=== PATIENT | female | born 1985 ===

== ENCOUNTER 2021-11-20 05:59 | Inpatient (IN) | payer SELFPAY ==
[2021-11-15 11:41] LABS: Hematocrit 37.1 % (30.3-42.9); Hemoglobin 12.6 gm/dl (10.1-14.3); Mean Corpuscular HGB Conc 34 % (30-34); Mean Corpuscular Volume 92 fl (79-97); Platelet Count 209 K/mm3 (140-440); Red Blood Count 4.03 M/mm3 (3.65-5.03)
[2021-11-20] MEDS ORDERED: GENTAMICIN 80 MG in SODIUM CHLORIDE 0.9% 100 ML IV ONE (10:16)
--- NOTE | 2021-11-20 10:25 | Anesthesia Consultation ---
Anesthesia Consult and Med Hx Date of service: 11/20/21 - Airway Anesthetic Teeth Evaluation: Good ROM Head & Neck: Adequate Mental/Hyoid Distance: Adequate Mallampati Class: Class II Intubation Access Assessment: Probably Good - Pulmonary Exam CTA: Yes - Cardiac Exam Cardiac Exam: RRR - Pre-Operative Health Status ASA Pre-Surgery Classification: ASA2 Proposed Anesthetic Plan: Epidural - Pulmonary Hx Smoking: No Hx Asthma: No COPD: No Hx Pneumonia: No - Cardiovascular System Hx Hypertension: No - Central Nervous System Hx Neuromuscular Disorder: No Hx Seizures: No Hx Psychiatric Problems: No - Endocrine Hx Renal Disease: No Hx End Stage Renal Disease: No Hx Hypothyroidism: No Hx Hyperthyroidism: No - Hematic Hx Anemia: No Hx Sickle Cell Disease: No - Other Systems Hx Alcohol Use: No Hx Cancer: No Hx Obesity: Yes
--- NOTE | 2021-11-20 10:25 | Anesthesia Day of Surgery ---
Anesthesia Day of Surgery - Day of Surgery Patient Examined: Yes Patient H&P Reviewed: Yes Patient is NPO: Yes
--- NOTE | 2021-11-20 10:32 | History and Physical Report ---
History of Present Illness Date of examination: 11/20/21 Date of admission: 11/20/21 09:15 Chief complaint: scheduled repeat c/sect and sterilization History of present illness: at 39.5wks by LMP c/w U/S. care at [facility]. Pt here for scheduled repeat section. Pt admits to movement, denies LOF, Vag bleed or feeling ctx. Pt desires no future fertility. labs in chart. Past History Past Medical History: no pertinent history Past Surgical History: section (x3) Social history: no significant social history - Obstetrical History Expected Date of Delivery: 11/22/21 Actual Gestation: 39 Week(s) 5 Day(s) : 3 Hx # Term Pregnancies: 3 (all 3 c/s) Induced : 1 Number of Living Children: 3 Medications and Allergies Allergies Allergy/AdvReac Type Severity Reaction Status Date / Time Penicillins Allergy Rash Verified 11/14/21 15:22 Home Medications Medication Instructions Recorded Confirmed Last Taken Type Vit No.130/Iron/Folic 1 each PO DAILY 09/25/15 11/14/21 09/24/15 16:00 History [ Tablet] Ibuprofen [Motrin] 800 mg PO Q8HR PRN 21 Days #40 11/20/21 Unknown Rx tablet oxyCODONE /ACETAMINOPHEN [Percocet 1 tab PO Q4HR PRN 21 Days #30 tab 11/20/21 Unknown Rx 5/325] Active Meds: Active Medications Citric Acid/Sodium Citrate (Bicitra Oral Liqd 30ml) 30 ml PO ONCE ONE Stop: 11/20/21 10:17 Famotidine (Famotidine 20 Mg/2 Ml Inj) 20 mg IV ONCE ONE Stop: 11/20/21 10:17 Ferrous Sulfate (Ferrous Sulfate 325 Mg Tab) 325 mg PO QDAY KYARA Lactated Ringer's (Lactated Ringers) 1,000 mls @ 2,250 mls/hr IV PREOP KYARA Stop: 11/21/21 10:57 Oxytocin/Sodium Chloride (Pitocin/Ns 30 Unit/500ml) 30 units in 500 mls @ 0 mls/hr IV TITR KYARA; Protocol Clindamycin HCl (Cleocin 900 Mg/50 Ml) 900 mg in 50 mls @ 100 mls/hr IV PREOP NR; Protocol Gentamicin Sulfate 80 mg/ (Sodium Chloride) 102 mls @ 200 mls/hr IV PREOP ONE; Protocol Stop: 11/20/21 10:45 Oxytocin/Sodium Chloride (Pitocin/Ns 30 Unit/500ml) 30 units in 500 mls @ 40 mls/hr IV TITR KYARA; Protocol Ibuprofen (Ibuprofen 600 Mg Tab) 600 mg PO Q6H PRN PRN Reason: Pain, Mild (1-3) Metoclopramide HCl (Metoclopramide 10 Mg/2 Ml Inj) 10 mg IV ONCE ONE Stop: 11/20/21 10:17 Morphine Sulfate (Morphine 4 Mg/1 Ml Inj) 4 mg IV Q4H PRN PRN Reason: Pain , Severe (7-10) Multi-Ingredient Ointment (Lanolin/Zinc/Dimethicone (Lansinoh) 7 Gm) 1 applic TP PRN PRN PRN Reason: dryness/cracking Naloxone HCl (Naloxone 0.4 Mg/1 Ml Inj) 0.1 mg IV Q2MIN PRN PRN Reason: Res Rate </= 8 or 02 SAT < 92% Oxycodone/Acetaminophen (Oxycodone /Acetaminophen 5-325mg Tab) 1 tab PO Q6H PRN PRN Reason: Pain, Moderate (4-6) Sodium Chloride (Sodium Chloride 0.9% 10 Ml Flush Syringe) 10 ml IV PRN NR Witch Autumn/Glycerin (Witch Autumn/ Glycerin Pad) 1 each TP PRN PRN PRN Reason: Hemorrhoids/cleansing/soothing Review of Systems All systems: negative (no complaints) - Vital Signs Vital signs: Vital Signs Temp Pulse Resp BP Pulse Ox 98.1 F 96 H 20 116/68 98 11/15/21 11:30 11/15/21 11:30 11/15/21 11:30 11/15/21 11:30 11/15/21 11:30 Temp Pulse Resp BP Pulse Ox 98.1 F 100 H 20 119/67 98 11/15/21 11:30 11/20/21 10:29 11/15/21 11:30 11/20/21 10:09 11/20/21 10:29 - Physical Exam Breasts: Positive: deferred Cardiovascular: Regular rate Lungs: Positive: Normal air movement Abdomen: Positive: soft, distention Genitourinary (Female): Positive: normal external genitalia Vulva: both: normal Uterus: Positive: enlarged (non-tender, gravid) - Obstetrical FHR: category 1 Uterine Contraction Monitor Mode: External Cervical Dilatation: 0 Uterine Contraction Pattern: Absent Results Result Diagrams: 11/20/21 10:35 All other labs normal. Assessment and Plan Term preg here for repeat c/section and bilateral salpingectomy with valid tubal papers. 1. Admit for procedure above, anesthesia and NICU notified. All questions encouraged and answered
[2021-11-20] MEDS ORDERED: ONDANSETRON 4 MG/2 ML INJ ONE ×2 (10:37→12:47)
[2021-11-20 10:38] LABS: Basophils # (Auto) 0.1 K/mm3 (0.0-0.1); Basophils % (Auto) 0.8 % (0.0-1.8); Eosinophils # (Auto) 0.1 K/mm3 (0.0-0.4); Eosinophils % (Auto) 1.2 % (0.0-4.3); Hematocrit 38.5 % (30.3-42.9); Hemoglobin 13.2 gm/dl (10.1-14.3); Lymphocytes # (Auto) 2.1 K/mm3 (1.2-5.4); Lymphocytes % (Auto) 29.6 % (13.4-35.0); Mean Corpuscular HGB Conc 34 % (30-34); Mean Corpuscular Volume 91 fl (79-97); Monocytes # (Auto) 0.4 K/mm3 (0.0-0.8); Monocytes % (Auto) 5.5 % (0.0-7.3); Platelet Count 191 K/mm3 (140-440); Red Blood Count 4.22 M/mm3 (3.65-5.03); Red Cell Distribution Width 14.7 % (13.2-15.2)
[2021-11-20] MEDS ORDERED: IBUPROFEN 600 MG TAB PO PRN (11:00)
[2021-11-20] MEDS ORDERED: LANOLIN/ZINC/DIMETHICONE (LANSINOH) 7 GM TP PRN (11:00)
[2021-11-20] MEDS ORDERED: GENTAMICIN/NS 100 MG/100 ML 100 MG/100 ML BAG IV SCH (11:00)
[2021-11-20] MEDS ORDERED: METOCLOPRAMIDE 10 MG/2 ML INJ IV SCH (11:00)
[2021-11-20] MEDS ORDERED: NALOXONE 0.4 MG/1 ML INJ IV PRN (11:00)
[2021-11-20] MEDS ORDERED: OXYTOCIN DRIP 30 UNITS/500 ML BAG IV SCH ×2 (11:00)
[2021-11-20] MEDS ORDERED: FAMOTIDINE 20 MG/2 ML INJ IV SCH (11:00)
[2021-11-20] MEDS ORDERED: BICITRA ORAL LIQD 30ML PO SCH (11:00)
[2021-11-20] MEDS: LACTATED RINGERS 1,000 ML IV SCH ×2 (11:58→20:12)
[2021-11-20] MEDS ORDERED: GENTAMICIN 40 MG/ML VIAL 2 ML IV ONE (12:10)
[2021-11-20] MEDS ORDERED: SODIUM CHLORIDE 0.9% IRR 1,500 ML BOTTLE IR ONE (12:30)
[2021-11-20] MEDS ORDERED: WATER FOR IRRIG STERILE 1,500 ML BOTTLE IR ONE (12:30)
[2021-11-20] MEDS ORDERED: LACTATED RINGERS 1,000 ML ONE ×4 (12:39→14:33)
[2021-11-20] MEDS ORDERED: PHENYLEPHRINE/NS 1,000 MCG/10 ML SYRINGE (OR USE) IV ONE (12:50)
[2021-11-20] MEDS ORDERED: WITCH HAZEL/ GLYCERIN PAD TP PRN (13:00)
[2021-11-20] MEDS ORDERED: BUPIVACAINE /DEX-WATER 0.75% (2 ML) AMPULE INFILTRATI ONE (13:04)
[2021-11-20] MEDS ORDERED: METHYLERGONOVINE MALEATE 0.2 MG/ML VIAL IM ONE ×2 (13:22→19:00)
[2021-11-20] MEDS ORDERED: miSOPROStol 200 MCG TAB ONE (13:22)
[2021-11-20] MEDS ORDERED: dexAMETHasone 20 MG/5 ML VIAL ONE (14:30)
[2021-11-20] MEDS ORDERED: BUPIVACAINE/PF (0.25%) 2.5 MG/ML 30 ML VIAL INFILTRATI ONE (14:30)
--- NOTE | 2021-11-20 15:02 | Procedure Note ---
OB Delivery Note - Delivery Date of Delivery: 11/20/21 Surgeon: KRISTYN TELLEZ Estimated blood loss: other (1350cc per QBL by nurse) - Section Preop diagnosis: repeat (previous c/s x3), desires sterilization section procedure: repeat low transverse, bilateral tubal ligation (via salpingectomy) Disposition: floor Complications: none Narrative: Date: 11/20/21 Surgeon: Kristyn Tellez MD Preop Dx: IUP at 39.5wks, previous c/s x3; desires permanent sterilization Postop Dx: same and latent labor and acute endomyometritis Procedure : Repeat low transverse section and bilateral tubal sterilization via salpingectomy Anesthesia: Spina Intake: 3500cc Output: 700cc clear urine at the end of the procedure EBL: 1350cc per QBL by nurse After the risks, benefits and alternatives of procedure discussed, patient signed consents and was taken to the operating room. Pt was given spinal anesthesia. After same was adequate, patient was prepped and draped in the usual sterile fashion. Man catheter in place and draining clear urine. Pt was given prophylactic antibiotic per protocol and time out was done Pfannenstiel skin incision was made and taken sharply to the fascia and the incision extended using electrocautery. Superior edge of the fascia was grasped with meryl clamps and the rectus muscle using blunt dissection and also using electrocautery. Lower portion of the fascia also using electrocautery. Rectus muscle in the midline and Peritoneal cavity entered sharply thru scar tissue and same extended with good visualization of the bladder. Nigel retractor placed without difficulty. The bladder flap was created sharply using metzenbaum scissors. Lower uterine segment was extremely thin and same entered transversely and amniotic sac entered using allys clamps and meconium stained fluid noted. Uterine incision extended using bandage scissors. delivered, bulb suctioned, cord clamped and baby handed to waiting pediatricians. Placenta then delivered completely and uterine cavity cleared of all clots and debri. Of note the tissue very friable and stained with meconium and portions in fragments as it was removed. The uterus was not exteriorized and closed in 2 layers using 0- monocryl suture in a running locked fashion and then an additional layer of imbrication suture. Excellent hemostasis noted. The gutters were cleared of clots and debri. Attention turned to left fallopian which was identified and follow out to it's fimbriated end. The avascular portion of the mesosalpinx was entered and the distal tubal segment with fimbriae excised and free ends remaining doubly ligated with 0-vicryl suture. Excellent hemostasis. In a similar manner the right tube was identified and distal tubal segment excised and free ends doubly ligated with excellent hemostasis. Of note the right tube had cyst of morgani. The anterior peritoneum and scar tissue and rectus muscle, reapproximated with 0-vicryl continuously and thene the rectus fascia closed with 0-vicryl suture in a continuous fashion. The subcutaneous tissue copiously irrigated with normal saline and re-approximated using 3-0 vicryl suture. Excellent hemostasis remains. The skin was closed with 4-0 monocryl suture in a subcutaneous fashion and steristrips placed. The right side of incision dermabond placed near suture knot only. Pressure dressing then placed above the steristrips. Sponge, lap, instrument and needle counts x4 were normal. Patient tolerated the procedure well and was taken to recovery room stable. Findings: Viable female infant, APGARS 8/9 and weight 3820g. Normal uterus with laboring lower uterine segment, meconium stained fluid, fragmented lower uterine segment tissue that breaks into fragments easily and meconium stained. Right tube with cyst of morgagni and left tube wnl and ovaries wnl bilaterally. Pathology: Right and left distal tubal segments. Right tube with cyst of morgagni and placenta with areas of calcification, infarct and meconium staining - A at 1 minute: 8 at 5 minutes: 9 Gender: Female (wt 3820g; meconium stained fluid)
--- NOTE | 2021-11-20 15:11 | Progress Note ---
Spinal Anesthesia Block - Spinal Anesthesia Block Start Time: 12:17 Stop Time: 12:26 Performed by:: ROOSEVELT POON Procedure: Patient is requesting epidural for labor pain. H&P and labs reviewed. Procedure explained, questions answered, consent obtained. Patient placed in sitting position with monitors applied. Timeout performed immediately before start of procedure. Prep/drape in usual sterile fashion. Skin localized 3 mL 1% lidocaine at L[2]-L[3] interspace. 17-gauge Tuohy epidural needle advanced to LIZ with saline at [8] cm. No blood/CSF noted via epidural needle. 25g spinal needle advanced into intrathecal space until clear, free flowing CSF noted. 1.4mL 0.75% hyperbaric bupivacaine + Precedex 0.5mcg injected into intrathecal space. Spinal needle removed and epidural catheter advanced to [12] cm. Negative aspiration for blood and CSF via catheter. Sterile dressing applied followed by tape reinforcement. Patient tolerated procedure well. No immediate complications noted.
--- NOTE | 2021-11-20 16:11 | Progress Note ---
Regional Anesthesia Block - Regional Anesthesia Block Start Time: 15:53 Stop Time: 15:58 Performed By:: ROOSEVELT POON Procedure: Patient consented for TAP block for post surgical pain management. Patient identified, monitors placed, and time out performed. TAP identified bilaterally via ultrasound. Skin prepped bilaterally with [chlorhexidine] and [22g stimuplex] needle advanced to the TAP. [Marcaine 0.25% 30ml] injected under ultrasound guidance on the [left] side. [Marcaine 0.25% 30ml] injected under ultrasound guidance on the [right] side. Negative aspiration every 5mL, No change in heart rate or rhythm. Patient tolerated the procedure well. No apparent complications seen.
[2021-11-20] MEDS: MORPHINE 4 MG/1 ML INJ IV PRN (18:43)
[2021-11-20] MEDS ORDERED: miSOPROStol 200 MCG TAB PR ONE (19:00)
[2021-11-20] MEDS: GENTAMICIN/NS 80 MG/100 ML 100 ML IV SCH (21:24)
[2021-11-21] MEDS: MORPHINE 4 MG/1 ML INJ IV PRN (01:10)
[2021-11-21] MEDS: GENTAMICIN/NS 80 MG/100 ML 100 ML IV SCH ×2 (04:38→13:32)
[2021-11-21] MEDS: FERROUS SULFATE 325 MG TAB PO SCH (10:25)
[2021-11-21] MEDS: oxyCODONE /ACETAMINOPHEN 5-325MG TAB PO PRN ×2 (10:25→12:59)
--- NOTE | 2021-11-21 11:16 | Post Anesthesia Evaluation ---
- Post Anesthesia Evaluation Patient Participated: Yes Airway Patent: Yes Stable Respiratory Function: Yes Nausea/Vomiting: No Temp > 96.8F: Yes Pain Manageable: Yes Adequeate Hydration: Yes Anesthesia Complications: No Block Receding Appropriately: Yes Patient on Ventilator: No
[2021-11-21] MEDS ORDERED: oxyCODONE /ACETAMINOPHEN 5-325MG TAB PO PRN (13:00)
--- NOTE | 2021-11-21 13:11 | Progress Note ---
Assessment and Plan A S/P Csection POD#1 Hypotensive Poor pain control. P Hypotensive, All other vitals wnl Stat CBC Pt. appears stable Increase percocet dosage to 10mg Continue PO care Subjective - Subjective Date of service: 11/21/21 Principal diagnosis: S/p Csection Patient reports: dizzy ambulation, pain poorly controlled, other (Called by RN , pt is hypotensive. All other vitals wnl. Pt. with incisional pain and right lower abdominal pain) Objective - Vital Signs Latest vital signs: Vital Signs Temp Pulse Resp BP BP Pulse Ox Pulse Ox 11/21/21 12:05 98.6 F 95 H 16 94/50 97 11/21/21 08:30 93 11/21/21 07:43 98.4 F 77 16 104/63 93 11/21/21 05:47 99.5 F 84 20 108/62 96 11/21/21 01:10 18 11/21/21 01:05 98.8 F 78 20 112/63 97 11/20/21 22:14 98 11/20/21 20:10 98.8 F 75 20 119/71 97 11/20/21 16:45 99.5 F 86 20 115/56 97 97 11/20/21 15:58 98.1 F 70 26 H 106/53 99 11/20/21 15:45 73 18 107/48 98 11/20/21 15:30 74 15 104/56 98 11/20/21 15:15 68 18 101/46 98 11/20/21 15:00 98.6 F 78 16 106/43 98 11/20/21 14:54 81 15 120/52 98 Intake and Output 11/20/21 11/21/21 11/21/21 23:59 07:59 15:59 Intake Total 340 240 220 Output Total 2800 300 900 Balance -9698 -60 -179 Intake: IV 100 Gentamicin/Ns 80 mg/100 100 ml 100 ml @ 200 mls/hr IV Q8H [facility] Rx#:[id number] Oral 120 120 220 Intake, Free Water 120 120 Output: Urine 2800 300 900 Indwelling Catheter 2800 Void 300 900 Other: Total, Intake Amount 120 120 220 Total, Output Amount 600 300 700 # Voids Void 1 - Exam Abdomen: Present: normal appearance, soft, normal bowel sounds Uterus: Present: firm, fundal height at umbilicus Extremities: Present: normal Incision: Present: dressed (Dressing clean and dry)
[2021-11-21 13:51] LABS: Basophils # (Auto) 0.1 K/mm3 (0.0-0.1); Basophils % (Auto) 0.5 % (0.0-1.8); Eosinophils % (Auto) 0.1 % (0.0-4.3); Hematocrit 35.6 % (30.3-42.9); Hemoglobin 11.8 gm/dl (10.1-14.3); Lymphocytes # (Auto) 2.1 K/mm3 (1.2-5.4); Mean Corpuscular HGB Conc 33 % (30-34); Mean Corpuscular Volume 93 fl (79-97); Monocytes # (Auto) 0.8 K/mm3 (0.0-0.8); Monocytes % (Auto) 6.2 % (0.0-7.3); Platelet Count 200 K/mm3 (140-440); Red Blood Count 3.84 M/mm3 (3.65-5.03); Red Cell Distribution Width 14.9 % (13.2-15.2)
[2021-11-22] MEDS: FERROUS SULFATE 325 MG TAB PO SCH (10:30)
--- NOTE | 2021-11-22 11:24 | Progress Note ---
Assessment and Plan A: POD #2 Stable P: Follow Routine PostOp Orders D/C home today per patient request RTO in one Week Subjective - Subjective Date of service: 11/22/21 Principal diagnosis: S/p Csection Patient reports: appetite normal, voiding normally, pain well controlled, flatus, ambulating normally : doing well, bottle feeding (and ) Objective - Vital Signs Latest vital signs: Vital Signs Temp Pulse Resp BP BP Pulse Ox Pulse Ox 11/22/21 08:54 96 11/22/21 08:12 98.8 F 87 18 108/73 96 11/22/21 00:00 98.6 F 74 16 104/78 11/21/21 20:00 100 11/21/21 16:12 98.3 F 79 20 104/64 96 11/21/21 14:00 81 103/59 97 11/21/21 12:05 98.6 F 95 H 16 94/50 97 Intake and Output 11/21/21 11/22/21 11/22/21 22:59 06:59 14:59 Intake Total 440 120 Output Total 900 Balance -460 120 Intake: Oral 440 120 Output: Urine 900 Void 900 Other: Total, Intake Amount 200 120 Total, Output Amount 900 # Voids Void 1 1 - Exam Breasts: Present: normal Cardiovascular: Present: Regular rate Lungs: Present: Clear to auscultation, Normal air movement Abdomen: Present: normal appearance, soft, normal bowel sounds Uterus: Present: normal, firm, fundal height below umbilicus Extremities: Present: normal Incision: Present: normal, dry, intact - Labs Labs: Abnormal lab results 11/21/21 Range/Units 13:39 WBC 12.2 H (4.5-11.0) K/mm3 Seg Neutrophils % 76.2 H (40.0-70.0) % Seg Neutrophils # 9.3 H (1.8-7.7) K/mm3
--- NOTE | 2021-11-22 11:26 | Discharge Summary ---
Providers - Providers Date of Admission: 11/20/21 09:15 Date of discharge: 11/22/21 Attending physician: LACY TELLEZ Primary care physician: LACY TELLEZ Hospitalization Reason for admission: section Delivery: Procedure: section, bilateral tubal ligation Episiotomy: none Laceration: none Incision: normal, dry, intact Other procedures: none complications: none Discharge diagnosis: IUP at term delivered [place] baby: female Condition at discharge: Good Disposition: 01 HOME / SELF CARE / HOMELESS Plan - Discharge Medications Prescriptions: Ibuprofen [Motrin] 800 mg PO Q8HR PRN 21 Days #40 tablet PRN Reason: Pain, Moderate (4-6) oxyCODONE /ACETAMINOPHEN [Percocet 5/325] 1 tab PO Q4HR PRN 21 Days #30 tab PRN Reason: Pain , Severe (7-10) - Provider Discharge Summary Activity: routine, no sex for 6 weeks, no heavy lifting 4 weeks, no strenuous exercise Diet: routine Instructions: routine Additional instructions: [] Smoking cessation referral if applicable(refer to patient education folder for contact #) [] Refer to [facility]'s [facility] Booklet Call your doctor immediately for: * Fever > 100.5 * Heavy vaginal bleeding ( >1 pad per hour) * Severe persistent headache * Shortness of breath * Reddened, hot, painful area to leg or breast * Drainage or odor from incision. * Keep incision clean and dry at all times and follow doctor's instructions regarding bathing/showering - Follow up plan Follow up: LACY TELLEZ MD [Primary Care Provider] - 7 Days
[2021-11-22 13:03] VITALS: BP 112/70
== END 2021-11-22 13:10 | disposition home or self-care (01) | DRG 785 ==
LOC: APU 09:15 → OB 16:40
PROVIDERS: ADMIT Obstetrics & Gynecology; ATTEND Obstetrics & Gynecology
PROC: 10D00Z1 Extraction of Products of Conception, Low, Open Approach (ICD-10-PCS; principal; 2021-11-20)
PROC: 0UB70ZZ Excision of Bilateral Fallopian Tubes, Open Approach (ICD-10-PCS; 2021-11-20)
DX: O34.211 Maternal care for low transverse scar from previous cesarean delivery (principal); Z3A.39 39 weeks gestation of pregnancy; Z37.0 Single live birth; O99.214 Obesity complicating childbirth; Z30.2 Encounter for sterilization; O26.50 Maternal hypotension syndrome, unspecified trimester; Z20.822 Contact with and (suspected) exposure to COVID-19
CPT/HCPCS: 36415; 85025; 85027; 86592; 86850; 86900; 86901; 88302; 88307; 99211; G0378; J0630; J3490; J7121; J7502; G0463; J1100; J1580; J2270; J2370; J2405; J2765; J7120; U0003